=== PATIENT | female | born 1925 | race Caucasian/White ===

== ENCOUNTER 2016-08-22 11:44 | Inpatient (IN) | payer MEDICARE, OTHER ==
--- NOTE | 2016-08-22 12:02 | ER Document Report ---
Addendum entered and electronically signed by XUAN PENN NP 08/22/16 21:38 : Course - Re-evaluation Re-evalutation: 08/22/16 19:00 splint application by PCT, thumb spica and ulnar gutter, alignment and n/v/ intact normal after splint application. - Vital Signs Vital signs: Temp Pulse Resp BP Pulse Ox 97.4 F 93 17 115/56 L 97 08/22/16 12:06 08/22/16 12:06 08/22/16 21:00 08/22/16 21:00 08/22/16 21:00 - Laboratory Result Diagrams: 08/22/16 12:50 08/22/16 12:50 Laboratory results interpreted by me: 08/22/16 08/22/16 08/22/16 12:50 12:50 12:50 RBC 2.62 L Hgb 8.7 L Hct 25.5 L RDW 15.2 H Seg Neutrophils % 80.4 H Lymphocytes % 12.2 L Sodium 135.3 L Glucose 125 H Creatine Kinase CK-MB (CK-2) 9.97 H 08/22/16 12:50 RBC Hgb Hct RDW Seg Neutrophils % Lymphocytes % Sodium Glucose Creatine Kinase 505 H CK-MB (CK-2) Original Note: ED Fall - General Stated Complaint: FALL/NOSE PAIN,RIGHT WRIST SWELLING Time seen by provider: 12:02 Mode of Arrival: Medic Information source: Patient, Relative - daughter Notes: 89-year-old female that lives alone felt weak and dizzy last night which she has been experiencing for quite a while. Her legs give out on her which her primary care nurse practitioner has been working on. Because of the leg weakness , it caused her to fall while she was alone last night. the bookcase fell on her injuring her face. She is complaining of right wrist pain left shoulder pain low back pain and facial lacerations. She states she had to sleep on the books. No dizziness at this time. Her vital signs are stable. She has a history of anemia, cancer. She does not take anticoagulants. - Related data Allergies/Adverse Reactions: No Known Allergies Allergy (Unverified 08/22/16 12:21) Past Medical History - General Information source: Patient, Relative - Social History Smoking Status: Never Smoker Frequency of alcohol use: None Drug Abuse: None Lives with: Alone Family History: Reviewed & Not Pertinent Malignancy Medical History: Reports: Hx Ovarian Cancer, Other - 1 cancer spot still on liver and spleen Past Surgical History: Reports: Hx Hysterectomy, Other - partial colectomy due to ovarian cancer mets Review of Systems - Review of Systems Constitutional: No symptoms reported EENT: No symptoms reported Cardiovascular: No symptoms reported Respiratory: No symptoms reported Gastrointestinal: No symptoms reported Genitourinary: No symptoms reported Female Genitourinary: No symptoms reported Musculoskeletal: See HPI Skin: No symptoms reported Hematologic/Lymphatic: Anemia - chronic. denies: Easy bleeding Neurological/Psychological: See HPI Physical Exam - Vital signs Vitals: Temp Pulse Resp BP Pulse Ox 97.4 F 93 14 109/67 97 08/22/16 12:06 08/22/16 12:06 08/22/16 12:06 08/22/16 12:06 08/22/16 12:06 Interpretation: Normal - General General appearance: Appears well, Alert, Other - bright eyes - HEENT Head: Normocephalic, Ecchymosis, Open wounds - left forearm, nasal, left cheek- not sure of extent due to the dried blood, will investigate further, [place]'s eyes. No: Sommer's sign Eyes: Normal Conjunctiva: Normal Extraocular movements intact: Yes Pupils: PERRL Nerve palsy: No Tympanic membrane: Normal Nasal: Bloody discharge, Swelling. No: Septal hematoma Neck: Supple - mild mid c spine - Respiratory Respiratory status: No respiratory distress Chest status: Nontender Breath sounds: Normal Chest palpation: Normal - Cardiovascular Rhythm: Regular Heart sounds: Normal auscultation Murmur: No - Abdominal Inspection: Normal Distension: No distension Bowel sounds: Normal Tenderness: Nontender. No: Tender Organomegaly: No organomegaly - Back Back: Normal, Tender - mild lumbar spine - Extremities General upper extremity: Normal inspection, Nontender, Normal color, Normal ROM , Normal temperature General lower extremity: Normal inspection, Nontender, Normal color, Normal ROM , Normal temperature, Normal weight bearing. No: Kirsty's sign Elbow: Normal Forearm: Tender - wrist Hand: Abrasion - bruising, multiple dorsal right had, Ecchymosis - Neurological Neuro grossly intact: Yes Cognition: Normal Orientation: AAOx4 [place] Coma Scale Eye Opening: Spontaneous [place] Coma Scale Verbal: Oriented [place] Coma Scale Motor: Obeys Commands [place] Coma Scale Total: 15 Speech: Normal Motor strength normal: LUE, RUE, LLE, RLE Sensory: Normal - Psychological Associated symptoms: Normal affect, Normal mood - Skin Skin Temperature: Warm Skin Moisture: Dry Skin Color: Normal Course - Re-evaluation Re-evalutation: 08/22/16 14:[address] Blanca who said to add CPK CPK-MB troponin, ekg, cxr. He also recommended do transfuse one unit of blood. Try to get the patient admitted due to these episodes of dizziness and weakness. distal 1/3 fx right ulna. N/V intact. Distal first right metacarpal is also fractured 08/22/16 17:12 dr linares states that no criteria for admission unless she is orthostatic. supine BP 136/61 87, standing BP 109/95 112. 2 nurses had to hold her up, she is unstable and leans to the left, he will now admit. 08/22/16 17:[address] Lovelace the orthopedics who will consult on the patient. 08/22/16 17:23 sutured face completed. heating chicken dinner for her to eat - Vital Signs Vital signs: Temp Pulse Resp BP Pulse Ox 97.4 F 93 14 109/67 97 08/22/16 12:06 08/22/16 12:06 08/22/16 12:06 08/22/16 12:06 08/22/16 12:06 - Laboratory Result Diagrams: 08/22/16 12:50 08/22/16 12:50 Laboratory results interpreted by me: 08/22/16 08/22/16 08/22/16 12:50 12:50 12:50 RBC 2.62 L Hgb 8.7 L Hct 25.5 L RDW 15.2 H Seg Neutrophils % 80.4 H Lymphocytes % 12.2 L Sodium 135.3 L Glucose 125 H Creatine Kinase CK-MB (CK-2) 9.97 H 08/22/16 12:50 RBC Hgb Hct RDW Seg Neutrophils % Lymphocytes % Sodium Glucose Creatine Kinase 505 H CK-MB (CK-2) Procedures - Laceration/Wound Repair Left Face Time completed: 18:20 Wound length (cm): 2 Wound's Depth, Shape: Linear Laceration pre-procedure: Sterile drapes applied, Other - surgiscrub Anesthetic type: 1% Lidocaine Volume Anesthetic (mLs): 6 Wound explored: Clean Irrigated w/ Saline (mLs): 60 Wound Repaired With: Sutures Suture Size/Type: 5:0, Nylon Number of Sutures: 6 - 1 vertical mattress, 5 simple Post-procedure NV exam normal: Yes Complications: No Notes: 08/22/16 18:42 bridge of nose with 0.5 cm superficial cut Discharge - Discharge Clinical Impression: Pre-syncope, fractured right ulna, Anemia of chronic disease, low back pain, right 1st MC fx, RHABDOMYOLYSIS, facial laceration repair Fall Qualifiers: Encounter type: initial encounter Qualified Code(s): W19.XXXA - Unspecified fall, initial encounter Facial laceration Qualifiers: Encounter type: initial encounter Qualified Code(s): S01.81XA - Laceration without foreign body of other part of head, initial encounter Left shoulder pain Qualifiers: Chronicity: chronic Qualified Code(s): M25.512 - Pain in left shoulder Condition: Fair Disposition: ADMITTED INPATIENT Admitting Provider: Hospitalist Unit Admitted: Medical Floor
[2016-08-22] MEDS ORDERED: NORMAL SALINE 1000 ML 500 ML IV ONE (12:14)
[2016-08-22] MEDS ORDERED: NORMAL SALINE 1000 ML 1,000 ML IV ONE (12:15)
[2016-08-22] MEDS ORDERED: ONDANSETRON HCL INJ/PF 4 MG/2 ML SDV IV ONE (12:16)
[2016-08-22] MEDS ORDERED: MORPHINE SULFATE 10 MG/ML INJ IV ONE ×3 (12:16→17:15)
[2016-08-22] MEDS ORDERED: DIPH/PERTUSS(ACELL)/TETANUS VAC/PF 0.5 ML SYR (>=10YO) IM ONE (12:21)
[2016-08-22] MEDS ORDERED: LIDOCAINE 1% INJ-PF (10 MG/ML) 30 ML SDV INJ ONE (12:23)
[2016-08-22 13:10] LABS: ABSOLUTE LYMPHOCYTES (AUTO) 1.1 10^3/uL (0.5-4.7); ABSOLUTE MONOCYTES (AUTO) 0.6 10^3/uL (0.1-1.4); ABSOLUTE NEUT (AUTO) 7.2 10^3/uL (1.7-8.2); BASOPHILS % (AUTO) 0.2 % (0-2); HEMATOCRIT 25.5 % (36.0-47.0); HEMOGLOBIN 8.7 g/dL (12.0-15.5); HGB HCT DIFFERENCE 0.6; LYMPHOCYTES % (AUTO) 12.2 % (13-45); MEAN CORPUSCULAR HEMOGLOBIN 33.1 pg (27.0-33.4); MEAN CORPUSCULAR HGB CONC 34.1 g/dL (32.0-36.0); MEAN CORPUSCULAR VOLUME 97 fl (80-97); MONOCYTES % (AUTO) 7.2 % (3-13); PARTIAL THROMBOPLASTIN TIME 26.3 SEC (23.5-35.8); RED BLOOD COUNT 2.62 10^6/uL (3.72-5.28); RED CELL DISTRIBUTION WIDTH 15.2 % (11.5-14.0); SEGMENTED NEUTROPHILS % (AUTO) 80.4 % (42-78)
[2016-08-22 13:17] LABS: ALANINE AMINOTRANSFERASE 27 U/L (9-52); ALBUMIN 3.6 g/dL (3.5-5.0); ALKALINE PHOSPHATASE 84 U/L (38-126); ANION GAP 11 (5-19); ASPARTATE AMINO TRANSFERASE 36 U/L (14-36); BILIRUBIN,TOTAL 0.4 mg/dL (0.2-1.3); BLOOD UREA NITROGEN 20 mg/dL (7-20); CALCIUM 9.5 mg/dL (8.4-10.2); CARBON DIOXIDE 23 mmol/L (22-30); CHLORIDE 101 mmol/L (98-107); CREATININE RESULT 0.83 mg/dL (0.52-1.25); GLUCOSE 125 mg/dL (75-110); POTASSIUM 4.6 mmol/L (3.6-5.0); SODIUM 135.3 mmol/L (137-145); TOTAL PROTEIN 6.6 g/dL (6.3-8.2)
[2016-08-22] MEDS ORDERED: NORMAL SALINE 250 ML IV PRN ×2 (14:32)
[2016-08-22 15:05] LABS: CREATINE KINASE MB 9.97 ng/mL (<4.55)
[2016-08-22 15:06] LABS: TROPONIN I < 0.012 ng/mL
--- NOTE | 2016-08-22 15:55 | EKG REPORT ---
SEVERITY:- BORDERLINE ECG - SINUS RHYTHM PROBABLE LEFT ATRIAL ABNORMALITY BORDERLINE PROLONGED QT INTERVAL : Confirmed by: Lilli Guerra 22-Aug-2016 15:54:38
[2016-08-22] MEDS ORDERED: ONDANSETRON HCL INJ/PF 4 MG/2 ML SDV IV PRN (17:47)
[2016-08-22] MEDS ORDERED: IPRATROPIUM/ALBUTEROL 0.5-2.5 MG/3 ML AMPUL NEB PRN (17:47)
--- NOTE | 2016-08-22 18:21 | PDOC H&P ---
History of Present Illness Admission Date/PCP: elise BARRERA Patient complains of: Bookcase fell on her History of Present Illness: SHEREEN CHOUDHURY is a 89 year old female who has lived alone and has been in fairly good health of having ovarian cancer. She finished chemotherapy last in May. Yesterday evening around 11 PM she was walking to her house and felt lightheaded and dizzy. She reached behind her and grabbed hold of the bookshelf to stop her fall and pulled the bookshelf on top of her. She suffered facial lacerations as well as a right forearm fracture and left thumb fracture. She laid on the floor until 9 AM when her daughter came by to fix her breakfast. She was found underneath the bookcase covered and blood and was brought to the emergency room for further treatment. The patient denies having any loss of consciousness. She denied having any palpitations or tachycardia. The patient currently however has difficulty standing because feeling lightheaded and appears to be dehydrated. The patient also has fractures of her right ulnar as above. Past Medical History Cardiac Medical History: Reports: None Pulmonary Medical History: Reports: None EENT Medical History: Reports: Cataracts Neurological Medical History: Reports: None Endocrine Medical History: Reports: Hypothyroidism Malignancy Medical History: Reports: Ovarian Cancer, Other - 1 cancer spot still on liver and spleen GI Medical History: Reports: Other - Partial colectomy for debulking surgery from the ovarian cancer. Musculoskeltal Medical History: Reports: Arthritis Skin Medical History: Reports: None Psychiatric Medical History: Reports: Depression Traumatic Medical History: Reports: None Hematology: Reports: Anemia Infectious Medical History: Reports: None Past Surgical History Past Surgical History: Reports: Hysterectomy, Other - partial colectomy due to ovarian cancer mets Social History Information Source: Patient Lives with: Alone Smoking Status: Never Smoker Frequency of Alcohol Use: None Hx Recreational Drug Use: No Drugs: None - Advance Directive Resuscitation Status: Full Code Family History Family History: Mother at age 74. She had scarlet fever, coronary artery disease, CVA. Father at age 86 and had no chronic health problems. Parental Family History Reviewed: Yes Children Family History Reviewed: No Sibling(s) Family History Reviewed.: No Medication/Allergy Allergies/Adverse Reactions: No Known Allergies Allergy (Unverified 08/22/16 12:21) Review of Systems Constitutional: ABSENT: chills, fever(s), headache(s), weight gain, weight loss Eyes: ABSENT: visual disturbances Ears: ABSENT: hearing changes Cardiovascular: ABSENT: chest pain, dyspnea on exertion, edema, orthropnea, palpitations Respiratory: ABSENT: cough, hemoptysis Gastrointestinal: ABSENT: abdominal pain, constipation, diarrhea, hematemesis, hematochezia, nausea, vomiting Genitourinary: ABSENT: dysuria, hematuria Musculoskeletal: PRESENT: back pain, joint swelling, muscle weakness Integumentary: PRESENT: other - Has multiple lacerations on her face from her fall yesterday evening. Neurological: PRESENT: dizziness, lack of coordination Psychiatric: ABSENT: anxiety, depression Endocrine: ABSENT: cold intolerance, heat intolerance, polydipsia, polyuria Physical Exam Vital Signs: Temp Pulse Resp BP Pulse Ox 97.4 F 93 14 109/67 97 08/22/16 12:06 08/22/16 12:06 08/22/16 12:06 08/22/16 12:06 08/22/16 12:06 General appearance: PRESENT: no acute distress Head exam: PRESENT: other - Patient has a large laceration above her left eyebrow. At The time of my exam she had dried blood on her face that was the process of being cleaned by ER staff. Eye exam: PRESENT: conjunctiva pink, EOMI, PERRLA. ABSENT: scleral icterus Ear exam: PRESENT: normal external ear exam Mouth exam: PRESENT: dry mucosa Neck exam: ABSENT: carotid bruit, JVD, lymphadenopathy, thyromegaly Respiratory exam: PRESENT: clear to auscultation lance. ABSENT: rales, rhonchi, wheezes Cardiovascular exam: PRESENT: RRR. ABSENT: diastolic murmur, rubs, systolic murmur Pulses: PRESENT: normal carotid pulses Vascular exam: PRESENT: normal capillary refill GI/Abdominal exam: PRESENT: normal bowel sounds, soft. ABSENT: distended, guarding, mass, organolmegaly, rebound, tenderness Rectal exam: PRESENT: deferred Extremities exam: PRESENT: joint swelling - Right knee is swollen with 1+ effusion.. ABSENT: calf tenderness, clubbing, pedal edema Neurological exam: PRESENT: alert, awake, oriented to person, oriented to place , oriented to time, oriented to situation, CN II-XII grossly intact. ABSENT: motor sensory deficit Psychiatric exam: PRESENT: appropriate affect Skin exam: PRESENT: other - Patient has multiple abrasions on her right arm and face. Results Laboratory Results: 08/22/16 12:50 08/22/16 12:50 08/22/16 08/22/16 12:50 12:50 WBC 9.0 RBC 2.62 L Hgb 8.7 L Hct 25.5 L MCV 97 MCH 33.1 MCHC 34.1 RDW 15.2 H Plt Count 241 Seg Neutrophils % 80.4 H Lymphocytes % 12.2 L Monocytes % 7.2 Eosinophils % 0.0 Basophils % 0.2 Absolute Neutrophils 7.2 Absolute Lymphocytes 1.1 Absolute Monocytes 0.6 Absolute Eosinophils 0.0 Absolute Basophils 0.0 Sodium 135.3 L Potassium 4.6 Chloride 101 Carbon Dioxide 23 Anion Gap 11 BUN 20 Creatinine 0.83 Est GFR ( Amer) > 60 Est GFR (Non-Af Amer) > 60 Glucose 125 H Calcium 9.5 Total Bilirubin 0.4 AST 36 ALT 27 Alkaline Phosphatase 84 Total Protein 6.6 Albumin 3.6 08/22/16 08/22/16 12:50 12:50 Creatine Kinase 505 H CK-MB (CK-2) 9.97 H Troponin I < 0.012 Impressions: Forearm X-Ray 08/22/16 00:00 IMPRESSION: Acute spiral fracture mid 3rd right ulnar diaphysis Acute fracture right 1st metacarpal along the distal diaphysis Cervical Spine CT 08/22/16 12:15 IMPRESSION: CHRONIC DEGENERATIVE CHANGES. NO ACUTE FINDINGS. Facial Bones CT 08/22/16 12:15 IMPRESSION: No evidence for fracture. Paranasal sinuses are well-aerated without air-fluid levels. Soft tissue findings as noted above Hand X-Ray 08/22/16 12:15 IMPRESSION: Acute fracture distal aspect right 1st metacarpal diaphysis, nondisplaced. This best shown on the oblique view, marked with a [place] Head CT 08/22/16 12:15 IMPRESSION: MILD CHRONIC CHANGES OF ATROPHY AND MICROVASCULAR ISCHEMIA. No other significant intracranial abnormalities were identified. Scalp hematoma is identified in the left frontal region Lumbar Spine X-Ray 08/22/16 12:15 IMPRESSION: Degenerative changes. Osteopenia. 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 Assessment & Plan - Diagnosis (1) Fall Qualifiers: Encounter type: initial encounter Qualified Code(s): W19.XXXA - Unspecified fall, initial encounter Is this a current diagnosis for this admission?: YesPlan: The patient was dizzy and grabbed a bookcase that develop on her and caused injury including fracture of her right arm. The patient had no loss of consciousness and no palpitations or tachycardia. This appeared to be a simple mechanical fall and no other precipitating factor. Unfortunately the patient has suffered severe lacerations of her face as well as rhabdomyolysis and arm fracture. (2) Facial laceration Qualifiers: Encounter type: initial encounter Qualified Code(s): S01.81XA - Laceration without foreign body of other part of head, initial encounter Is this a current diagnosis for this admission?: YesPlan: The facial lacerations are being sutured by the emergency room staff. (3) Rhabdomyolysis Is this a current diagnosis for this admission?: YesPlan: The patient was down on the ground for approximately 10 hours. She has developed some mild to moderate rhabdomyolysis. She was orthostatic in the emergency room. We will give fluids overnight and watch closely. She has no evidence for renal failure at this time. The patient is anemic but reports that she is chronically anemic. (4) Ovarian cancer Is this a current diagnosis for this admission?: YesPlan: The patient has had chemotherapy including carboplatin in the past. Her last chemotherapy was in May and by reports she has a lesion on her liver. (5) Hypothyroidism Is this a current diagnosis for this admission?: YesPlan: The patient normally takes Synthroid. She is uncertain as to what the doses but her family will find out and let us know. (6) Depression Is this a current diagnosis for this admission?: YesPlan: The patient was started on Lexapro when her developed dementia. She is uncertain of the dose but the family will find out what her dose is. (7) Anemia of chronic disease Is this a current diagnosis for this admission?: YesPlan: The patient is orthostatic but it's unclear if the anemia is playing a role. We will give fluids overnight and recheck her hemoglobin in the morning. If it drops below 8 we will transfuse. (8) Ulna fracture Is this a current diagnosis for this admission?: YesPlan: The patient will be given analgesics as needed and orthopedic surgery has been consulted. The patient normally uses a walker and her right arm is going to be in a sling. 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 - Time Time Spent: 50 to 70 Minutes Anticipated discharge: SNF - Inpatient Certification Medical Necessity: Need Close Monitoring Due to Risk of Patient Decompensation, Need For IV Fluids
[2016-08-22 22:25] LABS: APPEARANCE,URINE CLOUDY; BILIRUBIN,URINE NEGATIVE (NEGATIVE); GLUCOSE, URINE NEGATIVE (NEGATIVE); KETONES,URINE NEGATIVE (NEGATIVE); LEUKOCYTE ESTERASE,URINE SMALL (NEGATIVE); NITRITE,URINE NEGATIVE (NEGATIVE); PROTEIN,URINE NEGATIVE (NEGATIVE); URINE SPECIFIC GRAVITY 1.018; UROBILINOGEN,URINE NEGATIVE mg/dL (<2.0)
[2016-08-23] MEDS ORDERED: INFLUENZA ADLT QUAD (36MOS+) 2016-17 VAC 0.5 ML SYR IM PRN (00:36)
[2016-08-23] MEDS: FAMOTIDINE 20 MG TABLET PO SCH ×3 (02:57→22:00)
[2016-08-23 05:40] LABS: HEMATOCRIT 21.6 % (36.0-47.0); HGB HCT DIFFERENCE 0.3; MEAN CORPUSCULAR HGB CONC 33.6 g/dL (32.0-36.0); MEAN CORPUSCULAR VOLUME 98 fl (80-97); RED CELL DISTRIBUTION WIDTH 15.6 % (11.5-14.0); WHITE BLOOD COUNT 8.4 10^3/uL (4.0-10.5)
[2016-08-23 05:49] LABS: HEMOGLOBIN 7.3 g/dL (12.0-15.5)
[2016-08-23 05:50] LABS: ANION GAP 8 (5-19); BLOOD UREA NITROGEN 15 mg/dL (7-20); CALCIUM 8.9 mg/dL (8.4-10.2); CARBON DIOXIDE 24 mmol/L (22-30); CHLORIDE 103 mmol/L (98-107); CREATINE KINASE 765 U/L (30-135); CREATININE RESULT 0.79 mg/dL (0.52-1.25); GLUCOSE 103 mg/dL (75-110); POTASSIUM 4.1 mmol/L (3.6-5.0); SODIUM 134.6 mmol/L (137-145)
[2016-08-23] MEDS: OXYCODONE-ACETAMINOPHEN 5-325 MG TABLET PO PRN (06:32)
[2016-08-23] MEDS ORDERED: NORMAL SALINE 250 ML IV PRN ×2 (07:26)
[2016-08-23] MEDS ORDERED: FUROSEMIDE INJ/PF 20 MG/2 ML SDV IV PRN (07:26)
--- NOTE | 2016-08-23 10:07 | PDOC CONSULTATION ---
History of Present Illness Admission Date/PCP: 08/22/16 17:47 MARCELLO ADAIR Patient complains of: Right arm and hand pain History of Present Illness: 89-year-old female who fell and had a drawer stress fall onto her right arm and face. Patient had lacerations to the face and pain and swelling of the right forearm and hand. Denies any numbness or tingling or paresthesias. Denies any previous surgeries or injuries to the right upper extremity. Patient is right- hand dominant. Patient admitted for medical issues. ER x-rayed her forearm and hand and diagnosed her with an ulnar shaft fracture and knee first metatarsal carpal head fracture. She was placed in a thumb spica splint. Past Medical History Cardiac Medical History: Reports: None Pulmonary Medical History: Reports: None EENT Medical History: Reports: Cataracts Neurological Medical History: Reports: None Endocrine Medical History: Reports: Hypothyroidism Malignancy Medical History: Reports: Ovarian Cancer, Other - 1 cancer spot still on liver and spleen GI Medical History: Reports: Other - Partial colectomy for debulking surgery from the ovarian cancer. Musculoskeltal Medical History: Reports: Arthritis Skin Medical History: Reports: None Psychiatric Medical History: Reports: Depression Traumatic Medical History: Reports: None Hematology: Reports: Anemia Infectious Medical History: Reports: None Past Surgical History Past Surgical History: Reports: Hysterectomy, Other - partial colectomy due to ovarian cancer mets Social History Lives with: Alone Smoking Status: Unknown if Ever Smoked Frequency of Alcohol Use: None Hx Recreational Drug Use: No Drugs: None Hx Prescription Drug Abuse: No - Advance Directive Resuscitation Status: Do Not Resuscitate Family History Family History: Reviewed & Not Pertinent Parental Family History Reviewed: Yes Children Family History Reviewed: Yes Sibling(s) Family History Reviewed.: Yes Medication/Allergy Home Medications: Escitalopram Oxalate [Lexapro 10 mg Tablet] 1 tab PO DAILY 08/22/16 Levothyroxine Sodium [Synthroid 0.05 mg Tablet] 1 tab PO DAILY 08/22/16 Tramadol HCl 1 tab PO Q4HP PRN 08/22/16 Allergies/Adverse Reactions: No Known Allergies Allergy (Unverified 08/22/16 12:21) Physical Exam Vital Signs: Temp Pulse Resp BP Pulse Ox 36.7 C 87 16 107/39 L 95 08/23/16 07:55 08/23/16 07:55 08/23/16 07:55 08/23/16 07:55 08/23/16 07:55 Intake & Output 08/22/16 08/23/16 08/24/16 06:59 06:59 06:59 Weight 65.3 kg General appearance: PRESENT: no acute distress Head exam: PRESENT: normocephalic - Lacerations to upper eyelid. Sutures in place done in the ER. Eye exam: PRESENT: EOMI. ABSENT: nystagmus Respiratory exam: PRESENT: symmetrical, unlabored. ABSENT: accessory muscle use Additional comments: +2 radial pulse. Brisk capillary refill. Musculoskeletal exam: PRESENT: ambulatory. ABSENT: deformity Neurological exam: PRESENT: alert, awake, oriented to person, oriented to place , oriented to time Psychiatric exam: PRESENT: appropriate affect, normal mood Skin exam: PRESENT: intact Adult Front & Back Image: 1 - Right forearm tender to palpation in mid forearm on the ulnar aspect. Patient also has tenderness at the base of the thumb. Swelling present. Decreased range of motion second to pain. Has good capillary refills of the digits. Good radial pulse. No obvious deformity. Patient was placed back in the thumb spica splint. Results Laboratory Results: 08/23/16 05:14 08/23/16 05:14 08/22/16 08/23/16 08/23/16 22:01 05:14 05:14 WBC 8.4 RBC 2.20 L Hgb 7.3 L Hct 21.6 L MCV 98 H MCH 33.0 MCHC 33.6 RDW 15.6 H Plt Count 212 Sodium 134.6 L Potassium 4.1 Chloride 103 Carbon Dioxide 24 Anion Gap 8 BUN 15 Creatinine 0.79 Est GFR ( Amer) > 60 Est GFR (Non-Af Amer) > 60 Glucose 103 Calcium 8.9 Urine Color YELLOW Urine Appearance CLOUDY Urine pH 5.0 Ur Specific [place] 1.018 Urine Protein NEGATIVE Urine Glucose (UA) NEGATIVE Urine Ketones NEGATIVE Urine Blood NEGATIVE Urine Nitrite NEGATIVE Ur Leukocyte Esterase SMALL H Urine WBC (Auto) 39 Urine RBC (Auto) 1 08/23/16 05:14 Creatine Kinase 765 H Impressions: Forearm X-Ray 08/22/16 00:00 IMPRESSION: Acute spiral fracture mid 3rd right ulnar diaphysis Acute fracture right 1st metacarpal along the distal diaphysis Cervical Spine CT 08/22/16 12:15 IMPRESSION: CHRONIC DEGENERATIVE CHANGES. NO ACUTE FINDINGS. Facial Bones CT 08/22/16 12:15 IMPRESSION: No evidence for fracture. Paranasal sinuses are well-aerated without air-fluid levels. Soft tissue findings as noted above Hand X-Ray 08/22/16 12:15 IMPRESSION: Acute fracture distal aspect right 1st metacarpal diaphysis, nondisplaced. This best shown on the oblique view, marked with a [place] Head CT 08/22/16 12:15 IMPRESSION: MILD CHRONIC CHANGES OF ATROPHY AND MICROVASCULAR ISCHEMIA. No other significant intracranial abnormalities were identified. Scalp hematoma is identified in the left frontal region Lumbar Spine X-Ray 08/22/16 12:15 IMPRESSION: Degenerative changes. Osteopenia. 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 Assessment & Plan - Diagnosis (1) Fracture of ulnar shaft, closed Qualifiers: Encounter type: initial encounter Fracture morphology: oblique Fracture alignment: displaced Laterality: right Qualified Code(s): S52.231A - Displaced oblique fracture of shaft of right ulna, initial encounter for closed fracture Is this a current diagnosis for this admission?: Yes (2) Fracture of metacarpal neck of right hand, closed Is this a current diagnosis for this admission?: Yes - Plan Summary Plan Summary: 89-year-old female with right ulnar shaft fracture with mild displacement and very little shortening. Pertaining to the right first metacarpal neck fracture it's about 20 of angulation with little displacement. Patient will be kept in a thumb spica splint until her discharge. Instructed to follow up with us in the office in 2 weeks. Instructed to be nonweightbearing. Instructed to keep the splint dry clean and intact. Elevate and place a big bag of ice on top a splint over a towel is okay for pain relief.
--- NOTE | 2016-08-23 10:52 | PDOC PROGRESS REPORT ---
Subjective Progress Note for:: 08/23/16 Subjective:: Reports the pain in her arms tolerable after a Percocet. Physical Exam Vital Signs: Temp Pulse Resp BP Pulse Ox 98.0 F 87 16 107/39 L 95 08/23/16 07:55 08/23/16 07:55 08/23/16 07:55 08/23/16 07:55 08/23/16 07:55 Intake & Output 08/22/16 08/23/16 08/24/16 06:59 06:59 06:59 Weight 65.3 kg General appearance: PRESENT: no acute distress Head exam: PRESENT: other - Sutures present on the left forehead Eye exam: PRESENT: conjunctiva pink Mouth exam: PRESENT: moist, tongue midline Neck exam: ABSENT: JVD Respiratory exam: PRESENT: clear to auscultation lance. ABSENT: rales, rhonchi, wheezes Cardiovascular exam: PRESENT: RRR. ABSENT: diastolic murmur, rubs, systolic murmur GI/Abdominal exam: PRESENT: normal bowel sounds, soft. ABSENT: distended, guarding, mass, organolmegaly, rebound, tenderness Extremities exam: PRESENT: other - Splint in place on right arm Neurological exam: PRESENT: alert, awake, oriented to person, oriented to place , oriented to time, oriented to situation Psychiatric exam: PRESENT: appropriate affect Skin exam: PRESENT: abrasion - On forehead and right arm Results Laboratory Results: 08/23/16 05:14 08/23/16 05:14 08/22/16 08/23/16 08/23/16 22:01 05:14 05:14 WBC 8.4 RBC 2.20 L Hgb 7.3 L Hct 21.6 L MCV 98 H MCH 33.0 MCHC 33.6 RDW 15.6 H Plt Count 212 Sodium 134.6 L Potassium 4.1 Chloride 103 Carbon Dioxide 24 Anion Gap 8 BUN 15 Creatinine 0.79 Est GFR ( Amer) > 60 Est GFR (Non-Af Amer) > 60 Glucose 103 Calcium 8.9 Urine Color YELLOW Urine Appearance CLOUDY Urine pH 5.0 Ur Specific [place] 1.018 Urine Protein NEGATIVE Urine Glucose (UA) NEGATIVE Urine Ketones NEGATIVE Urine Blood NEGATIVE Urine Nitrite NEGATIVE Ur Leukocyte Esterase SMALL H Urine WBC (Auto) 39 Urine RBC (Auto) 1 Blood Type Antibody Screen 08/23/16 08:27 WBC RBC Hgb Hct MCV MCH MCHC RDW Plt Count Sodium Potassium Chloride Carbon Dioxide Anion Gap BUN Creatinine Est GFR ( Amer) Est GFR (Non-Af Amer) Glucose Calcium Urine Color Urine Appearance Urine pH Ur Specific [place] Urine Protein Urine Glucose (UA) Urine Ketones Urine Blood Urine Nitrite Ur Leukocyte Esterase Urine WBC (Auto) Urine RBC (Auto) Blood Type O POSITIVE Antibody Screen NEGATIVE 08/23/16 05:14 Creatine Kinase 765 H Impressions: Forearm X-Ray 08/22/16 00:00 IMPRESSION: Acute spiral fracture mid 3rd right ulnar diaphysis Acute fracture right 1st metacarpal along the distal diaphysis Cervical Spine CT 08/22/16 12:15 IMPRESSION: CHRONIC DEGENERATIVE CHANGES. NO ACUTE FINDINGS. Facial Bones CT 08/22/16 12:15 IMPRESSION: No evidence for fracture. Paranasal sinuses are well-aerated without air-fluid levels. Soft tissue findings as noted above Hand X-Ray 08/22/16 12:15 IMPRESSION: Acute fracture distal aspect right 1st metacarpal diaphysis, nondisplaced. This best shown on the oblique view, marked with a wiyot Head CT 08/22/16 12:15 IMPRESSION: MILD CHRONIC CHANGES OF ATROPHY AND MICROVASCULAR ISCHEMIA. No other significant intracranial abnormalities were identified. Scalp hematoma is identified in the left frontal region Lumbar Spine X-Ray 08/22/16 12:15 IMPRESSION: Degenerative changes. Osteopenia. 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 Assessment & Plan - Diagnosis (1) Fall Qualifiers: Encounter type: initial encounter Qualified Code(s): W19.XXXA - Unspecified fall, initial encounter Is this a current diagnosis for this admission?: YesPlan: The patient was dizzy and grabbed a bookcase that develop on her and caused injury including fracture of her right arm. The patient had no loss of consciousness and no palpitations or tachycardia. This appeared to be a simple mechanical fall and no other precipitating factor. Unfortunately the patient has suffered severe lacerations of her face as well as rhabdomyolysis and arm fracture. (2) Facial laceration Qualifiers: Encounter type: initial encounter Qualified Code(s): S01.81XA - Laceration without foreign body of other part of head, initial encounter Is this a current diagnosis for this admission?: YesPlan: The facial lacerations have been sutured by the emergency room staff. (3) Rhabdomyolysis Is this a current diagnosis for this admission?: YesPlan: The patient was down on the ground for approximately 10 hours. She has developed some mild to moderate rhabdomyolysis. She was orthostatic in the emergency room. We will give fluids overnight and watch closely. The patient' s CK has actually worsened since yesterday. We'll continue with IV fluids. She has no evidence for renal failure at this time. The patient is anemic but reports that she is chronically anemic. (4) Ovarian cancer Is this a current diagnosis for this admission?: YesPlan: The patient has had chemotherapy including carboplatin in the past. Her last chemotherapy was in May and by reports she has a lesion on her liver. (5) Hypothyroidism Is this a current diagnosis for this admission?: YesPlan: The patient normally takes Synthroid. She is uncertain as to what the doses but her family will find out and let us know. (6) Depression Is this a current diagnosis for this admission?: YesPlan: The patient was started on Lexapro when her developed dementia. She is uncertain of the dose but the family will find out what her dose is. (7) Anemia of chronic disease Is this a current diagnosis for this admission?: YesPlan: Her hemoglobin has decreased after getting IV fluids. We'll transfuse 2 units of packed red blood cells. (8) Ulna fracture Is this a current diagnosis for this admission?: YesPlan: Orthopedic surgery has evaluated the patient and their input is greatly appreciated. The patient normally uses a walker and her right arm is going to be in a sling. 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 - Time Time Spent with patient: 25-34 minutes - Inpatient Certification Medical Necessity: Need Close Monitoring Due to Risk of Patient Decompensation - Plan Summary Plan Summary: [facility] will need [facility] as she'll be unable to care for herself given her inability to use her walker now she cannot bear weight on the right arm.
[2016-08-23] MEDS: ACETAMINOPHEN 325 MG TABLET PO PRN (18:15)
[2016-08-23] MEDS: DOCUSATE SODIUM 100 MG CAPSULE PO SCH (22:00)
[2016-08-23] MEDS: NORMAL SALINE 1000 ML 1,000 ML IV PRN (22:06)
[2016-08-24 00:30] LABS: ABSOLUTE LYMPHOCYTES (AUTO) 1.4 10^3/uL (0.5-4.7); ABSOLUTE MONOCYTES (AUTO) 0.9 10^3/uL (0.1-1.4); ABSOLUTE NEUT (AUTO) 6.6 10^3/uL (1.7-8.2); BASOPHILS % (AUTO) 0.2 % (0-2); EOSINOPHILS % (AUTO) 0.1 % (0-6); HEMATOCRIT 28.7 % (36.0-47.0); HGB HCT DIFFERENCE 0.4; LYMPHOCYTES % (AUTO) 15.2 % (13-45); MEAN CORPUSCULAR HEMOGLOBIN 31.3 pg (27.0-33.4); MONOCYTES % (AUTO) 10.4 % (3-13); RED BLOOD COUNT 3.11 10^6/uL (3.72-5.28); RED CELL DISTRIBUTION WIDTH 17.5 % (11.5-14.0); SEGMENTED NEUTROPHILS % (AUTO) 74.1 % (42-78); WHITE BLOOD COUNT 8.9 10^3/uL (4.0-10.5)
[2016-08-24 00:31] LABS: HEMOGLOBIN 9.7 g/dL (12.0-15.5); MEAN CORPUSCULAR VOLUME 92 fl (80-97)
[2016-08-24] MEDS: ACETAMINOPHEN 325 MG TABLET PO PRN ×2 (05:57→13:25)
[2016-08-24 06:41] LABS: ABSOLUTE LYMPHOCYTES (AUTO) 1.4 10^3/uL (0.5-4.7); ABSOLUTE MONOCYTES (AUTO) 0.7 10^3/uL (0.1-1.4); ABSOLUTE NEUT (AUTO) 5.2 10^3/uL (1.7-8.2); BASOPHILS % (AUTO) 0.3 % (0-2); EOSINOPHILS % (AUTO) 0.4 % (0-6); HEMATOCRIT 28.4 % (36.0-47.0); HEMOGLOBIN 9.7 g/dL (12.0-15.5); HGB HCT DIFFERENCE 0.7; LYMPHOCYTES % (AUTO) 19.1 % (13-45); MEAN CORPUSCULAR HEMOGLOBIN 31.2 pg (27.0-33.4); MEAN CORPUSCULAR VOLUME 92 fl (80-97); MONOCYTES % (AUTO) 10.2 % (3-13); RED CELL DISTRIBUTION WIDTH 17.2 % (11.5-14.0); WHITE BLOOD COUNT 7.4 10^3/uL (4.0-10.5)
[2016-08-24 07:01] LABS: ANION GAP 5 (5-19); BLOOD UREA NITROGEN 12 mg/dL (7-20); CALCIUM 8.4 mg/dL (8.4-10.2); CARBON DIOXIDE 27 mmol/L (22-30); CHLORIDE 105 mmol/L (98-107); CREATININE RESULT 0.75 mg/dL (0.52-1.25); GLUCOSE 85 mg/dL (75-110); POTASSIUM 3.7 mmol/L (3.6-5.0); SODIUM 136.8 mmol/L (137-145)
[2016-08-24] MEDS: DOCUSATE SODIUM 100 MG CAPSULE PO SCH ×2 (09:27→23:05)
[2016-08-24] MEDS: FAMOTIDINE 20 MG TABLET PO SCH ×2 (09:27→23:05)
--- NOTE | 2016-08-24 11:55 | PDOC PROGRESS REPORT ---
Subjective Progress Note for:: 08/24/16 Subjective:: Complains of pain in her right arm. She's had difficulty getting up out of bed. Physical Exam Vital Signs: Temp Pulse Resp BP Pulse Ox 98.5 F 81 19 141/56 H 94 08/24/16 08:00 08/24/16 08:00 08/24/16 08:00 08/24/16 08:00 08/24/16 08:00 Intake & Output 08/23/16 08/24/16 08/25/16 06:59 06:59 06:59 Intake Total 4711 Balance 4711 Weight 65.3 kg 70.2 kg General appearance: PRESENT: no acute distress Head exam: PRESENT: other - Periorbital ecchymoses Eye exam: PRESENT: conjunctiva pink, periorbital swelling Ear exam: PRESENT: normal external ear exam Mouth exam: PRESENT: moist, tongue midline Neck exam: ABSENT: JVD Respiratory exam: PRESENT: clear to auscultation lance. ABSENT: rales, rhonchi, wheezes Cardiovascular exam: PRESENT: RRR. ABSENT: diastolic murmur, rubs, systolic murmur GI/Abdominal exam: PRESENT: normal bowel sounds, soft. ABSENT: distended, guarding, mass, organolmegaly, rebound, tenderness Extremities exam: PRESENT: other - Right arm is in a splint.. ABSENT: calf tenderness, clubbing, pedal edema Neurological exam: PRESENT: alert, awake, oriented to person, oriented to place , oriented to time, oriented to situation Psychiatric exam: PRESENT: appropriate affect Skin exam: PRESENT: other - Multiple abrasions and ecchymosis on the right arm and face. Sutures above the left eyebrow. Results Laboratory Results: 08/24/16 05:50 08/24/16 05:50 08/23/16 08/23/16 08/24/16 08:27 23:56 05:50 WBC 8.9 7.4 RBC 3.11 L 3.10 L Hgb 9.7 L D 9.7 L Hct 28.7 L 28.4 L MCV 92 D 92 MCH 31.3 31.2 MCHC 34.0 34.0 RDW 17.5 H 17.2 H Plt Count 187 196 Seg Neutrophils % 74.1 70.0 Lymphocytes % 15.2 19.1 Monocytes % 10.4 10.2 Eosinophils % 0.1 0.4 Basophils % 0.2 0.3 Absolute Neutrophils 6.6 5.2 Absolute Lymphocytes 1.4 1.4 Absolute Monocytes 0.9 0.7 Absolute Eosinophils 0.0 0.0 Absolute Basophils 0.0 0.0 Sodium Potassium Chloride Carbon Dioxide Anion Gap BUN Creatinine Est GFR ( Amer) Est GFR (Non-Af Amer) Glucose Calcium Blood Type O POSITIVE Antibody Screen NEGATIVE 08/24/16 05:50 WBC RBC Hgb Hct MCV MCH MCHC RDW Plt Count Seg Neutrophils % Lymphocytes % Monocytes % Eosinophils % Basophils % Absolute Neutrophils Absolute Lymphocytes Absolute Monocytes Absolute Eosinophils Absolute Basophils Sodium 136.8 L Potassium 3.7 Chloride 105 Carbon Dioxide 27 Anion Gap 5 BUN 12 Creatinine 0.75 Est GFR ( Amer) > 60 Est GFR (Non-Af Amer) > 60 Glucose 85 Calcium 8.4 Blood Type Antibody Screen 08/22/16 22:01 Clean Catch Midstream Urine Culture - Final Enterococcus Faecalis(Group D) 08/23/16 08/24/16 05:14 05:50 Creatine Kinase 765 H 260 H Impressions: Forearm X-Ray 08/22/16 00:00 IMPRESSION: Acute spiral fracture mid 3rd right ulnar diaphysis Acute fracture right 1st metacarpal along the distal diaphysis Cervical Spine CT 08/22/16 12:15 IMPRESSION: CHRONIC DEGENERATIVE CHANGES. NO ACUTE FINDINGS. Facial Bones CT 08/22/16 12:15 IMPRESSION: No evidence for fracture. Paranasal sinuses are well-aerated without air-fluid levels. Soft tissue findings as noted above Hand X-Ray 08/22/16 12:15 IMPRESSION: Acute fracture distal aspect right 1st metacarpal diaphysis, nondisplaced. This best shown on the oblique view, marked with a [place] Head CT 08/22/16 12:15 IMPRESSION: MILD CHRONIC CHANGES OF ATROPHY AND MICROVASCULAR ISCHEMIA. No other significant intracranial abnormalities were identified. Scalp hematoma is identified in the left frontal region Lumbar Spine X-Ray 08/22/16 12:15 IMPRESSION: Degenerative changes. Osteopenia. 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 Assessment & Plan - Diagnosis (1) Fall Qualifiers: Encounter type: initial encounter Qualified Code(s): W19.XXXA - Unspecified fall, initial encounter Is this a current diagnosis for this admission?: YesPlan: The patient was dizzy and grabbed a bookcase that develop on her and caused injury including fracture of her right arm. The patient had no loss of consciousness and no palpitations or tachycardia. This appeared to be a simple mechanical fall and no other precipitating factor. Unfortunately the patient has suffered severe lacerations of her face as well as rhabdomyolysis and arm fracture. (2) Facial laceration Qualifiers: Encounter type: initial encounter Qualified Code(s): S01.81XA - Laceration without foreign body of other part of head, initial encounter Is this a current diagnosis for this admission?: YesPlan: The facial lacerations have been sutured by the emergency room staff. (3) Rhabdomyolysis Is this a current diagnosis for this admission?: YesPlan: The patient was down on the ground for approximately 10 hours. She has developed some mild to moderate rhabdomyolysis. She was orthostatic in the emergency room. The patient's creatine kinase has started to trend down. (4) Ovarian cancer Is this a current diagnosis for this admission?: YesPlan: The patient has had chemotherapy including carboplatin in the past. Her last chemotherapy was in May and by reports she has a lesion on her liver. (5) Hypothyroidism Is this a current diagnosis for this admission?: YesPlan: The patient normally takes Synthroid. She is uncertain as to what the doses but her family will find out and let us know. (6) Depression Is this a current diagnosis for this admission?: YesPlan: The patient was started on Lexapro when her developed dementia. She is uncertain of the dose but the family will find out what her dose is. (7) Anemia of chronic disease Is this a current diagnosis for this admission?: YesPlan: Her hemoglobin has improved after transfusion. (8) Ulna fracture Is this a current diagnosis for this admission?: YesPlan: Orthopedic surgery has evaluated the patient and their input is greatly appreciated. The patient normally uses a walker and her right arm is going to be in a sling. 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 (9) Urinary tract infection Is this a current diagnosis for this admission?: YesPlan: Patient is growing out enterococcus. We'll start on amoxicillin. - Time Time Spent with patient: 25-34 minutes - Inpatient Certification Medical Necessity: Need Close Monitoring Due to Risk of Patient Decompensation - Plan Summary Plan Summary: Patient will start working with physical therapy. She will need placement for rehabilitation because of her right arm fracture along with weakness given her extreme age.
[2016-08-24] MEDS: AMOXICILLIN TRIHYDRATE 500 MG CAPSULE PO SCH ×2 (13:25→23:06)
[2016-08-24] MEDS: OXYCODONE-ACETAMINOPHEN 5-325 MG TABLET PO PRN (23:05)
[2016-08-25] MEDS ORDERED: AMOXICILLIN TRIHYDRATE 500 MG CAPSULE ONE (06:08)
[2016-08-25] MEDS: AMOXICILLIN TRIHYDRATE 500 MG CAPSULE PO SCH ×3 (06:32→22:00)
[2016-08-25 08:14] LABS: ABSOLUTE EOSINOPHILS # (AUTO) 0.1 10^3/uL (0.0-0.6); ABSOLUTE LYMPHOCYTES (AUTO) 1.5 10^3/uL (0.5-4.7); ABSOLUTE MONOCYTES (AUTO) 0.7 10^3/uL (0.1-1.4); ABSOLUTE NEUT (AUTO) 4.6 10^3/uL (1.7-8.2); BASOPHILS % (AUTO) 0.2 % (0-2); EOSINOPHILS % (AUTO) 0.8 % (0-6); HEMATOCRIT 26.9 % (36.0-47.0); HEMOGLOBIN 9.4 g/dL (12.0-15.5); HGB HCT DIFFERENCE 1.3; LYMPHOCYTES % (AUTO) 22.1 % (13-45); MEAN CORPUSCULAR VOLUME 91 fl (80-97); MONOCYTES % (AUTO) 10.7 % (3-13); RED BLOOD COUNT 2.94 10^6/uL (3.72-5.28); SEGMENTED NEUTROPHILS % (AUTO) 66.2 % (42-78); WHITE BLOOD COUNT 6.9 10^3/uL (4.0-10.5)
[2016-08-25 09:43] LABS: ANION GAP 6 (5-19); BLOOD UREA NITROGEN 9 mg/dL (7-20); CALCIUM 8.9 mg/dL (8.4-10.2); CARBON DIOXIDE 25 mmol/L (22-30); CHLORIDE 105 mmol/L (98-107); CREATININE RESULT 0.68 mg/dL (0.52-1.25); GLUCOSE 91 mg/dL (75-110); POTASSIUM 3.6 mmol/L (3.6-5.0); SODIUM 136.1 mmol/L (137-145)
[2016-08-25] MEDS: DOCUSATE SODIUM 100 MG CAPSULE PO SCH ×2 (09:55→22:00)
[2016-08-25] MEDS: FAMOTIDINE 20 MG TABLET PO SCH ×2 (09:55→22:01)
--- NOTE | 2016-08-25 10:22 | PDOC PROGRESS REPORT ---
Subjective Progress Note for:: 08/25/16 Subjective:: Complains of pain in her right arm. She's had difficulty getting up out of bed. Physical Exam Vital Signs: Temp Pulse Resp BP Pulse Ox 97.5 F 76 16 156/67 H 96 08/25/16 07:49 08/25/16 08:00 08/25/16 08:00 08/25/16 07:49 08/25/16 08:00 Intake & Output 08/24/16 08/25/16 08/26/16 06:59 06:59 06:59 Intake Total 4711 5484 Output Total 100 Balance 4711 5384 Weight 70.2 kg 75.5 kg General appearance: PRESENT: no acute distress Eye exam: PRESENT: conjunctiva pink, periorbital swelling Mouth exam: PRESENT: moist, tongue midline Neck exam: ABSENT: JVD Respiratory exam: PRESENT: clear to auscultation lance. ABSENT: rales, rhonchi, wheezes Cardiovascular exam: PRESENT: RRR. ABSENT: diastolic murmur, rubs, systolic murmur GI/Abdominal exam: PRESENT: normal bowel sounds, soft. ABSENT: distended, guarding, mass, organolmegaly, rebound, tenderness Extremities exam: PRESENT: other - Right arm is in a splint. Neurological exam: PRESENT: alert, awake, oriented to person, oriented to place , oriented to time, oriented to situation Psychiatric exam: PRESENT: appropriate affect Skin exam: PRESENT: abrasion - Abrasions on the forehead and right arm. Sutures on the left for head Results Laboratory Results: 08/25/16 06:50 08/25/16 09:16 08/25/16 08/25/16 08/25/16 06:50 06:50 09:16 WBC 6.9 RBC 2.94 L Hgb 9.4 L Hct 26.9 L MCV 91 MCH 32.0 MCHC 35.0 RDW 18.0 H Plt Count 175 Seg Neutrophils % 66.2 Lymphocytes % 22.1 Monocytes % 10.7 Eosinophils % 0.8 Basophils % 0.2 Absolute Neutrophils 4.6 Absolute Lymphocytes 1.5 Absolute Monocytes 0.7 Absolute Eosinophils 0.1 Absolute Basophils 0.0 Sodium Cancelled 136.1 L Potassium Cancelled 3.6 Chloride Cancelled 105 Carbon Dioxide Cancelled 25 Anion Gap Cancelled 6 BUN Cancelled 9 Creatinine Cancelled 0.68 Est GFR ( Amer) Cancelled > 60 Est GFR (Non-Af Amer) Cancelled > 60 Glucose Cancelled 91 Calcium Cancelled 8.9 08/22/16 22:01 Clean Catch Midstream Urine Culture - Final Enterococcus Faecalis(Group D) 08/23/16 08/24/16 05:14 05:50 Creatine Kinase 765 H 260 H Impressions: Forearm X-Ray 08/22/16 00:00 IMPRESSION: Acute spiral fracture mid 3rd right ulnar diaphysis Acute fracture right 1st metacarpal along the distal diaphysis Cervical Spine CT 08/22/16 12:15 IMPRESSION: CHRONIC DEGENERATIVE CHANGES. NO ACUTE FINDINGS. Facial Bones CT 08/22/16 12:15 IMPRESSION: No evidence for fracture. Paranasal sinuses are well-aerated without air-fluid levels. Soft tissue findings as noted above Hand X-Ray 08/22/16 12:15 IMPRESSION: Acute fracture distal aspect right 1st metacarpal diaphysis, nondisplaced. This best shown on the oblique view, marked with a [place] Head CT 08/22/16 12:15 IMPRESSION: MILD CHRONIC CHANGES OF ATROPHY AND MICROVASCULAR ISCHEMIA. No other significant intracranial abnormalities were identified. Scalp hematoma is identified in the left frontal region Lumbar Spine X-Ray 08/22/16 12:15 IMPRESSION: Degenerative changes. Osteopenia. 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 Assessment & Plan - Diagnosis (1) Fall Qualifiers: Encounter type: initial encounter Qualified Code(s): W19.XXXA - Unspecified fall, initial encounter Is this a current diagnosis for this admission?: YesPlan: The patient was dizzy and grabbed a bookcase that develop on her and caused injury including fracture of her right arm. The patient had no loss of consciousness and no palpitations or tachycardia. This appeared to be a simple mechanical fall and no other precipitating factor. Unfortunately the patient has suffered severe lacerations of her face as well as rhabdomyolysis and arm fracture. (2) Facial laceration Qualifiers: Encounter type: initial encounter Qualified Code(s): S01.81XA - Laceration without foreign body of other part of head, initial encounter Is this a current diagnosis for this admission?: YesPlan: The facial lacerations have been sutured by the emergency room staff. (3) Rhabdomyolysis Is this a current diagnosis for this admission?: YesPlan: The patient was down on the ground for approximately 10 hours. She has developed some mild to moderate rhabdomyolysis. She was orthostatic in the emergency room. Resolving. (4) Ovarian cancer Is this a current diagnosis for this admission?: YesPlan: The patient has had chemotherapy including carboplatin in the past. Her last chemotherapy was in May and by reports she has a lesion on her liver. (5) Hypothyroidism Is this a current diagnosis for this admission?: YesPlan: The patient normally takes Synthroid. She is uncertain as to what the doses but her family will find out and let us know. (6) Depression Is this a current diagnosis for this admission?: YesPlan: The patient was started on Lexapro when her developed dementia. (7) Anemia of chronic disease Is this a current diagnosis for this admission?: YesPlan: Her hemoglobin has improved after transfusion. (8) Ulna fracture Is this a current diagnosis for this admission?: YesPlan: Orthopedic surgery has evaluated the patient and their input is greatly appreciated. The patient normally uses a walker and her right arm is going to be in a sling. 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 (9) Urinary tract infection Is this a current diagnosis for this admission?: YesPlan: Patient is growing out enterococcus. Continue amoxicillin. - Time Time Spent with patient: 15-24 minutes - Inpatient Certification Medical Necessity: Need Close Monitoring Due to Risk of Patient Decompensation
[2016-08-25] MEDS: OXYCODONE-ACETAMINOPHEN 5-325 MG TABLET PO PRN ×2 (11:51→22:00)
--- NOTE | 2016-08-25 14:08 | PDOC PROGRESS REPORT ---
Subjective Progress Note for:: 08/25/16 Subjective:: Patient is sleeping comfortably in bed. Denies weightbearing on the right upper extremity. Denies the splint bleeding or causing any skin irritation. Physical Exam Vital Signs: Temp Pulse Resp BP Pulse Ox 36.4 C 76 16 156/67 H 96 08/25/16 07:49 08/25/16 08:00 08/25/16 08:00 08/25/16 07:49 08/25/16 08:00 Intake & Output 08/24/16 08/25/16 08/26/16 06:59 06:59 06:59 Intake Total 4711 5484 Output Total 100 Balance 4711 5384 Weight 70.2 kg 75.5 kg General appearance: PRESENT: no acute distress Adult Front & Back Image: 1 - Splint is intact. She has good capillary refill and good sensation to light touch. Results Laboratory Results: 08/25/16 06:50 08/25/16 09:16 08/25/16 08/25/16 08/25/16 06:50 06:50 09:16 WBC 6.9 RBC 2.94 L Hgb 9.4 L Hct 26.9 L MCV 91 MCH 32.0 MCHC 35.0 RDW 18.0 H Plt Count 175 Seg Neutrophils % 66.2 Lymphocytes % 22.1 Monocytes % 10.7 Eosinophils % 0.8 Basophils % 0.2 Absolute Neutrophils 4.6 Absolute Lymphocytes 1.5 Absolute Monocytes 0.7 Absolute Eosinophils 0.1 Absolute Basophils 0.0 Sodium Cancelled 136.1 L Potassium Cancelled 3.6 Chloride Cancelled 105 Carbon Dioxide Cancelled 25 Anion Gap Cancelled 6 BUN Cancelled 9 Creatinine Cancelled 0.68 Est GFR ( Amer) Cancelled > 60 Est GFR (Non-Af Amer) Cancelled > 60 Glucose Cancelled 91 Calcium Cancelled 8.9 08/22/16 22:01 Clean Catch Midstream Urine Culture - Final Enterococcus Faecalis(Group D) 08/23/16 08/24/16 05:14 05:50 Creatine Kinase 765 H 260 H Impressions: Forearm X-Ray 08/22/16 00:00 IMPRESSION: Acute spiral fracture mid 3rd right ulnar diaphysis Acute fracture right 1st metacarpal along the distal diaphysis Cervical Spine CT 08/22/16 12:15 IMPRESSION: CHRONIC DEGENERATIVE CHANGES. NO ACUTE FINDINGS. Facial Bones CT 08/22/16 12:15 IMPRESSION: No evidence for fracture. Paranasal sinuses are well-aerated without air-fluid levels. Soft tissue findings as noted above Hand X-Ray 08/22/16 12:15 IMPRESSION: Acute fracture distal aspect right 1st metacarpal diaphysis, nondisplaced. This best shown on the oblique view, marked with a [place] Head CT 08/22/16 12:15 IMPRESSION: MILD CHRONIC CHANGES OF ATROPHY AND MICROVASCULAR ISCHEMIA. No other significant intracranial abnormalities were identified. Scalp hematoma is identified in the left frontal region Lumbar Spine X-Ray 08/22/16 12:15 IMPRESSION: Degenerative changes. Osteopenia. 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 Assessment & Plan - Diagnosis (1) Fracture of ulnar shaft, closed Qualifiers: Encounter type: initial encounter Fracture morphology: oblique Fracture alignment: displaced Laterality: right Qualified Code(s): S52.231A - Displaced oblique fracture of shaft of right ulna, initial encounter for closed fracture Is this a current diagnosis for this admission?: Yes (2) Fracture of metacarpal neck of right hand, closed Is this a current diagnosis for this admission?: Yes - Plan Summary Plan Summary: Patient is a 89-year-old female with right distal ulna fracture and right first metacarpal shaft fracture. Patient continues to be nonweightbearing in her thumb spica splint. She is slow with therapy therefore she may require nursing home facility. Patient instructed to follow up in 1-2 weeks.
[2016-08-25] MEDS: NORMAL SALINE 1000 ML 1,000 ML IV PRN (14:45)
[2016-08-26] MEDS: OXYCODONE-ACETAMINOPHEN 5-325 MG TABLET PO PRN (05:17)
[2016-08-26] MEDS: AMOXICILLIN TRIHYDRATE 500 MG CAPSULE PO SCH ×3 (05:17→23:26)
[2016-08-26 06:45] LABS: ABSOLUTE EOSINOPHILS # (AUTO) 0.1 10^3/uL (0.0-0.6); ABSOLUTE LYMPHOCYTES (AUTO) 1.3 10^3/uL (0.5-4.7); ABSOLUTE MONOCYTES (AUTO) 0.9 10^3/uL (0.1-1.4); ABSOLUTE NEUT (AUTO) 5.1 10^3/uL (1.7-8.2); BASOPHILS % (AUTO) 0.5 % (0-2); EOSINOPHILS % (AUTO) 0.8 % (0-6); HEMATOCRIT 27.7 % (36.0-47.0); HEMOGLOBIN 9.4 g/dL (12.0-15.5); HGB HCT DIFFERENCE 0.5; LYMPHOCYTES % (AUTO) 17.2 % (13-45); MEAN CORPUSCULAR HEMOGLOBIN 31.5 pg (27.0-33.4); MEAN CORPUSCULAR VOLUME 93 fl (80-97); MONOCYTES % (AUTO) 11.8 % (3-13); RED BLOOD COUNT 2.99 10^6/uL (3.72-5.28); RED CELL DISTRIBUTION WIDTH 17.3 % (11.5-14.0); SEGMENTED NEUTROPHILS % (AUTO) 69.7 % (42-78); WHITE BLOOD COUNT 7.3 10^3/uL (4.0-10.5)
[2016-08-26 07:02] LABS: ANION GAP 11 (5-19); BLOOD UREA NITROGEN 7 mg/dL (7-20); CARBON DIOXIDE 24 mmol/L (22-30); CHLORIDE 102 mmol/L (98-107); CREATININE RESULT 0.64 mg/dL (0.52-1.25); GLUCOSE 87 mg/dL (75-110); POTASSIUM 3.3 mmol/L (3.6-5.0); SODIUM 136.8 mmol/L (137-145)
[2016-08-26] MEDS: DOCUSATE SODIUM 100 MG CAPSULE PO SCH ×2 (09:57→23:26)
[2016-08-26] MEDS: POTASSIUM CHLORIDE 10 MEQ TABLET.SA PO SCH ×2 (09:57→23:26)
[2016-08-26] MEDS: FAMOTIDINE 20 MG TABLET PO SCH ×2 (09:57→23:26)
--- NOTE | 2016-08-26 11:00 | PDOC PROGRESS REPORT ---
Subjective Progress Note for:: 08/26/16 Subjective:: Patient was slightly confused when I awoke her this morning. She reports her pain in the right arm is reasonable Physical Exam Vital Signs: Temp Pulse Resp BP Pulse Ox 98.5 F 73 19 155/54 H 95 08/26/16 07:48 08/26/16 07:48 08/26/16 07:48 08/26/16 07:48 08/26/16 07:48 Intake & Output 08/25/16 08/26/16 08/27/16 06:59 06:59 06:59 Intake Total 5484 3540 Output Total 100 Balance 5384 3540 Weight 75.5 kg 75.5 kg General appearance: PRESENT: no acute distress Eye exam: PRESENT: conjunctiva pink Mouth exam: PRESENT: moist, tongue midline Neck exam: ABSENT: JVD Respiratory exam: PRESENT: clear to auscultation lance. ABSENT: rales, rhonchi, wheezes Cardiovascular exam: PRESENT: RRR. ABSENT: diastolic murmur, rubs, systolic murmur GI/Abdominal exam: PRESENT: normal bowel sounds, soft. ABSENT: distended, guarding, mass, organolmegaly, rebound, tenderness Extremities exam: PRESENT: other - Right arm is in a splint. Neurological exam: PRESENT: other - Patient was confused when I woke her up however she became oriented after a few minutes. Psychiatric exam: PRESENT: appropriate affect Skin exam: PRESENT: other - Patient has ecchymosis on her periorbital area. There is a suture line above her left eyebrow. Results Laboratory Results: 08/26/16 05:15 08/26/16 05:15 08/26/16 08/26/16 05:15 05:15 WBC 7.3 RBC 2.99 L Hgb 9.4 L Hct 27.7 L MCV 93 MCH 31.5 MCHC 34.0 RDW 17.3 H Plt Count 193 Seg Neutrophils % 69.7 Lymphocytes % 17.2 Monocytes % 11.8 Eosinophils % 0.8 Basophils % 0.5 Absolute Neutrophils 5.1 Absolute Lymphocytes 1.3 Absolute Monocytes 0.9 Absolute Eosinophils 0.1 Absolute Basophils 0.0 Sodium 136.8 L Potassium 3.3 L Chloride 102 Carbon Dioxide 24 Anion Gap 11 BUN 7 Creatinine 0.64 Est GFR ( Amer) > 60 Est GFR (Non-Af Amer) > 60 Glucose 87 Calcium 8.0 L 08/23/16 08/24/16 05:14 05:50 Creatine Kinase 765 H 260 H Impressions: Forearm X-Ray 08/22/16 00:00 IMPRESSION: Acute spiral fracture mid 3rd right ulnar diaphysis Acute fracture right 1st metacarpal along the distal diaphysis Cervical Spine CT 08/22/16 12:15 IMPRESSION: CHRONIC DEGENERATIVE CHANGES. NO ACUTE FINDINGS. Facial Bones CT 08/22/16 12:15 IMPRESSION: No evidence for fracture. Paranasal sinuses are well-aerated without air-fluid levels. Soft tissue findings as noted above Hand X-Ray 08/22/16 12:15 IMPRESSION: Acute fracture distal aspect right 1st metacarpal diaphysis, nondisplaced. This best shown on the oblique view, marked with a burns paiute Head CT 08/22/16 12:15 IMPRESSION: MILD CHRONIC CHANGES OF ATROPHY AND MICROVASCULAR ISCHEMIA. No other significant intracranial abnormalities were identified. Scalp hematoma is identified in the left frontal region Lumbar Spine X-Ray 08/22/16 12:15 IMPRESSION: Degenerative changes. Osteopenia. 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 Assessment & Plan - Diagnosis (1) Fall Qualifiers: Encounter type: initial encounter Qualified Code(s): W19.XXXA - Unspecified fall, initial encounter Is this a current diagnosis for this admission?: YesPlan: The patient was dizzy and grabbed a bookcase that develop on her and caused injury including fracture of her right arm. The patient had no loss of consciousness and no palpitations or tachycardia. This appeared to be a simple mechanical fall and no other precipitating factor. Unfortunately the patient has suffered severe lacerations of her face as well as rhabdomyolysis and arm fracture. (2) Facial laceration Qualifiers: Encounter type: initial encounter Qualified Code(s): S01.81XA - Laceration without foreign body of other part of head, initial encounter Is this a current diagnosis for this admission?: YesPlan: The facial lacerations have been sutured by the emergency room staff. (3) Rhabdomyolysis Is this a current diagnosis for this admission?: YesPlan: The patient was down on the ground for approximately 10 hours. She has developed some mild to moderate rhabdomyolysis. She was orthostatic in the emergency room. Resolving. (4) Ovarian cancer Is this a current diagnosis for this admission?: YesPlan: The patient has had chemotherapy including carboplatin in the past. Her last chemotherapy was in May and by reports she has a lesion on her liver. (5) Hypothyroidism Is this a current diagnosis for this admission?: YesPlan: The patient normally takes Synthroid. (6) Depression Is this a current diagnosis for this admission?: YesPlan: The patient was started on Lexapro when her developed dementia. (7) Anemia of chronic disease Is this a current diagnosis for this admission?: YesPlan: Her hemoglobin has improved after transfusion. (8) Ulna fracture Is this a current diagnosis for this admission?: YesPlan: Orthopedic surgery has evaluated the patient and their input is greatly appreciated. The patient normally uses a walker and her right arm is going to be in a sling. 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 (9) Urinary tract infection Is this a current diagnosis for this admission?: YesPlan: Patient is growing out enterococcus. Continue amoxicillin. - Time Time Spent with patient: 25-34 minutes - Inpatient Certification Medical Necessity: Need Close Monitoring Due to Risk of Patient Decompensation - Plan Summary Plan Summary: We'll plan on discharge to a snf facility for rehabilitation when a bed becomes available.
[2016-08-26] MEDS ORDERED: ESCITALOPRAM OXALATE 10 MG TABLET PO ONE (13:00)
[2016-08-26] MEDS ORDERED: LEVOTHYROXINE SODIUM 0.05 MG TABLET PO ONE (13:00)
[2016-08-26] MEDS: LACTULOSE SYRUP 20 GM/30 ML UDCUP PO PRN (13:12)
[2016-08-26] MEDS: IBUPROFEN 800 MG TABLET PO PRN (17:19)
[2016-08-27] MEDS: IBUPROFEN 800 MG TABLET PO PRN ×2 (04:44→19:19)
[2016-08-27] MEDS: NORMAL SALINE 1000 ML 1,000 ML IV PRN ×3 (06:21→22:43)
[2016-08-27] MEDS: AMOXICILLIN TRIHYDRATE 500 MG CAPSULE PO SCH ×3 (06:21→22:40)
[2016-08-27 08:20] LABS: ABSOLUTE EOSINOPHILS # (AUTO) 0.1 10^3/uL (0.0-0.6); ABSOLUTE NEUT (AUTO) 4.8 10^3/uL (1.7-8.2); BASOPHILS % (AUTO) 0.1 % (0-2); HEMATOCRIT 27.8 % (36.0-47.0); HEMOGLOBIN 9.6 g/dL (12.0-15.5); LYMPHOCYTES % (AUTO) 14.5 % (13-45); MEAN CORPUSCULAR HEMOGLOBIN 31.7 pg (27.0-33.4); MEAN CORPUSCULAR HGB CONC 34.4 g/dL (32.0-36.0); MEAN CORPUSCULAR VOLUME 92 fl (80-97); MONOCYTES % (AUTO) 14.2 % (3-13); RED BLOOD COUNT 3.02 10^6/uL (3.72-5.28); RED CELL DISTRIBUTION WIDTH 17.2 % (11.5-14.0); SEGMENTED NEUTROPHILS % (AUTO) 70.2 % (42-78); WHITE BLOOD COUNT 6.8 10^3/uL (4.0-10.5)
[2016-08-27 08:42] LABS: ANION GAP 8 (5-19); BLOOD UREA NITROGEN 8 mg/dL (7-20); CALCIUM 8.2 mg/dL (8.4-10.2); CARBON DIOXIDE 26 mmol/L (22-30); CHLORIDE 105 mmol/L (98-107); CREATININE RESULT 0.63 mg/dL (0.52-1.25); GLUCOSE 95 mg/dL (75-110); POTASSIUM 3.6 mmol/L (3.6-5.0); SODIUM 138.9 mmol/L (137-145)
--- NOTE | 2016-08-27 10:06 | PDOC DISCHARGE SUMMARY ---
General - Admit/Disc Date/PCP Admission Date/Primary Care Provider: 08/22/16 17:47 MARCELLO ADAIR Discharge Date: 08/28/16 - Discharge Diagnosis (1) Fall Is this a current diagnosis for this admission?: Yes (2) Facial laceration Is this a current diagnosis for this admission?: YesSummary: Patient received sutures on the laceration above her left eyebrow. Sutures are to be removed on 09/01/2015 (3) Rhabdomyolysis Is this a current diagnosis for this admission?: Yes (4) Ovarian cancer Is this a current diagnosis for this admission?: Yes (5) Hypothyroidism Is this a current diagnosis for this admission?: Yes (6) Depression Is this a current diagnosis for this admission?: Yes (7) Anemia of chronic disease Is this a current diagnosis for this admission?: Yes (8) Ulna fracture Is this a current diagnosis for this admission?: Yes (9) Urinary tract infection Is this a current diagnosis for this admission?: YesSummary: Enterococcus being treated with amoxicillin. - Additional Information Resuscitation Status: Do Not Resuscitate Home Medications: Escitalopram Oxalate [Lexapro 10 mg Tablet] 1 tab PO DAILY 08/22/16 Levothyroxine Sodium [Synthroid 0.05 mg Tablet] 1 tab PO DAILY 08/22/16 Amoxicillin Trihydrate [Amoxil 500 mg Capsule] 500 mg PO Q8 #14 capsule Ibuprofen [Motrin 800 mg Tablet] 800 mg PO Q8HP PRN tablet 08/27/16 Lactulose [Cephulac Syrup 20 gm/30 ml Udcup] 20 gm PO Q6HP PRN udc 08/27/16 Tramadol HCl 1 tab PO Q4HP PRN #30 tablet 08/27/16 History of Present Illness History of Present Illness: SHEREEN CHOUDHURY is a 89 year old female who has lived alone and has been in fairly good health of having ovarian cancer. She finished chemotherapy last in May. Yesterday evening around 11 PM she was walking to her house and felt lightheaded and dizzy. She reached behind her and grabbed hold of the bookshelf to stop her fall and pulled the bookshelf on top of her. She suffered facial lacerations as well as a right forearm fracture and left thumb fracture. She laid on the floor until 9 AM when her daughter came by to fix her breakfast. She was found underneath the bookcase covered and blood and was brought to the emergency room for further treatment. The patient denies having any loss of consciousness. She denied having any palpitations or tachycardia. The patient currently however has difficulty standing because feeling lightheaded and appears to be dehydrated. The patient also has fractures of her right ulnar as above. Hospital Course Hospital Course: 89-year-old female who lost her balance and grabbed hold of a bookcase which then fell on top of her. The patient had this occur at night and was trapped by the bookcase until her daughter found her in the morning. When she presented to the emergency room she was found to have rhabdomyolysis. She also had a right ulnar fracture as well as a first MCP fracture. Patient was evaluated by orthopedic surgery who put her in a spica splint. Patient also received a laceration above her left eyebrow which was treated with sutures. The patient's rhabdomyolysis was treated with IV fluids has resolved. Patient also was noted have a urinary tract infection with enterococcus and has been treated with amoxicillin. 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 Now that she has a fracture in her right ulna she is unable to bear any weight on her right arm and cannot use a walker at this time. Because of this she needs to go to a [facility] facility for rehabilitation until she is able to ambulate and bear weight on her right arm. The patient will follow up with orthopedic surgery in 2 weeks. Physical Exam Vital Signs: Temp Pulse Resp BP Pulse Ox 97.8 F 63 20 168/72 H 96 08/27/16 08:30 08/27/16 08:30 08/26/16 23:45 08/27/16 08:30 08/27/16 08:30 Intake & Output 08/26/16 08/27/16 08/28/16 06:59 06:59 06:59 Intake Total 3540 2275 Balance 3540 2275 Weight 75.5 kg 76.5 kg General appearance: PRESENT: no acute distress Eye exam: PRESENT: conjunctiva pink Mouth exam: PRESENT: moist, tongue midline Neck exam: ABSENT: JVD Respiratory exam: PRESENT: clear to auscultation lance. ABSENT: rales, rhonchi, wheezes Cardiovascular exam: PRESENT: RRR. ABSENT: diastolic murmur, rubs, systolic murmur GI/Abdominal exam: PRESENT: normal bowel sounds, soft. ABSENT: distended, guarding, mass, organolmegaly, rebound, tenderness Extremities exam: PRESENT: other - Patient has a spica splint on the right arm.. ABSENT: calf tenderness, clubbing, pedal edema Neurological exam: PRESENT: alert, awake, oriented to person, oriented to place , oriented to time, oriented to situation, CN II-XII grossly intact Psychiatric exam: PRESENT: appropriate affect Skin exam: PRESENT: other - Sutures above the left eyebrow Results Laboratory Results: 08/27/16 06:27 08/27/16 07:48 08/27/16 08/27/16 06:27 07:48 WBC 6.8 RBC 3.02 L Hgb 9.6 L Hct 27.8 L MCV 92 MCH 31.7 MCHC 34.4 RDW 17.2 H Plt Count 195 Seg Neutrophils % 70.2 Lymphocytes % 14.5 Monocytes % 14.2 H Eosinophils % 1.0 Basophils % 0.1 Absolute Neutrophils 4.8 Absolute Lymphocytes 1.0 Absolute Monocytes 1.0 Absolute Eosinophils 0.1 Absolute Basophils 0.0 Sodium 138.9 Potassium 3.6 Chloride 105 Carbon Dioxide 26 Anion Gap 8 BUN 8 Creatinine 0.63 Est GFR ( Amer) > 60 Est GFR (Non-Af Amer) > 60 Glucose 95 Calcium 8.2 L 08/23/16 08/24/16 05:14 05:50 Creatine Kinase 765 H 260 H Impressions: Forearm X-Ray 08/22/16 00:00 IMPRESSION: Acute spiral fracture mid 3rd right ulnar diaphysis Acute fracture right 1st metacarpal along the distal diaphysis Cervical Spine CT 08/22/16 12:15 IMPRESSION: CHRONIC DEGENERATIVE CHANGES. NO ACUTE FINDINGS. Facial Bones CT 08/22/16 12:15 IMPRESSION: No evidence for fracture. Paranasal sinuses are well-aerated without air-fluid levels. Soft tissue findings as noted above Hand X-Ray 08/22/16 12:15 IMPRESSION: Acute fracture distal aspect right 1st metacarpal diaphysis, nondisplaced. This best shown on the oblique view, marked with a [place] Head CT 08/22/16 12:15 IMPRESSION: MILD CHRONIC CHANGES OF ATROPHY AND MICROVASCULAR ISCHEMIA. No other significant intracranial abnormalities were identified. Scalp hematoma is identified in the left frontal region Lumbar Spine X-Ray 08/22/16 12:15 IMPRESSION: Degenerative changes. Osteopenia. 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 Qualifiers [place]INT BEING DISCHARGED WITH ANY OF THE FOLLOWING DIAGNOSIS?: No Plan Discharge Plan: Patient is to be discharged to [facility] in [facility] on 08/28/2016. She will need follow-up with orthopedic surgery in 2 weeks. Sutures need to be removed from her left eyebrow on 2016 Time Spent: Greater than 30 Minutes
[2016-08-27] MEDS: LEVOTHYROXINE SODIUM 0.05 MG TABLET PO SCH (10:20)
[2016-08-27] MEDS: POTASSIUM CHLORIDE 10 MEQ TABLET.SA PO SCH ×2 (10:20→22:43)
[2016-08-27] MEDS: DOCUSATE SODIUM 100 MG CAPSULE PO SCH ×2 (10:20→22:43)
[2016-08-27] MEDS: ESCITALOPRAM OXALATE 10 MG TABLET PO SCH (10:20)
[2016-08-27] MEDS: FAMOTIDINE 20 MG TABLET PO SCH ×2 (10:21→22:40)
[2016-08-27] MEDS: LACTULOSE SYRUP 20 GM/30 ML UDCUP PO PRN (10:21)
[2016-08-28] MEDS: AMOXICILLIN TRIHYDRATE 500 MG CAPSULE PO SCH (06:14)
[2016-08-28] MEDS: IBUPROFEN 800 MG TABLET PO PRN (06:15)
[2016-08-28] MEDS: NORMAL SALINE 1000 ML 1,000 ML IV PRN (06:18)
--- NOTE | 2016-08-28 09:23 | PDOC PROGRESS REPORT ---
Subjective Progress Note for:: 08/28/16 Subjective:: This is an addendum to the discharge summary dictated by Dr. Henley. Patient was doing well. Reported intermittent confusion but most of the time patient is oriented. No reported respiratory distress or temperature spikes. No reported nausea or vomiting. Resting comfortably. Physical Exam Vital Signs: Temp Pulse Resp BP Pulse Ox 97.8 F 76 20 163/75 H 97 08/28/16 07:53 08/28/16 07:53 08/28/16 07:53 08/28/16 07:53 08/28/16 07:53 Intake & Output 08/27/16 08/28/16 08/29/16 06:59 06:59 06:59 Intake Total 2275 3602 Balance 2275 3602 Weight 76.5 kg 75.4 kg General appearance: PRESENT: no acute distress Head exam: PRESENT: normocephalic Eye exam: PRESENT: conjunctiva pale Mouth exam: PRESENT: moist, neck supple Neck exam: ABSENT: JVD Respiratory exam: PRESENT: clear to auscultation lance, unlabored. ABSENT: rhonchi, wheezes Cardiovascular exam: PRESENT: RRR GI/Abdominal exam: PRESENT: normal bowel sounds, soft. ABSENT: distended, tenderness Extremities exam: ABSENT: pedal edema Skin exam: PRESENT: dry, warm. ABSENT: cyanosis Results Laboratory Results: 08/27/16 06:27 08/27/16 07:48 08/23/16 08/24/16 05:14 05:50 Creatine Kinase 765 H 260 H Impressions: Forearm X-Ray 08/22/16 00:00 IMPRESSION: Acute spiral fracture mid 3rd right ulnar diaphysis Acute fracture right 1st metacarpal along the distal diaphysis Cervical Spine CT 08/22/16 12:15 IMPRESSION: CHRONIC DEGENERATIVE CHANGES. NO ACUTE FINDINGS. Facial Bones CT 08/22/16 12:15 IMPRESSION: No evidence for fracture. Paranasal sinuses are well-aerated without air-fluid levels. Soft tissue findings as noted above Hand X-Ray 08/22/16 12:15 IMPRESSION: Acute fracture distal aspect right 1st metacarpal diaphysis, nondisplaced. This best shown on the oblique view, marked with a [place] Head CT 08/22/16 12:15 IMPRESSION: MILD CHRONIC CHANGES OF ATROPHY AND MICROVASCULAR ISCHEMIA. No other significant intracranial abnormalities were identified. Scalp hematoma is identified in the left frontal region Lumbar Spine X-Ray 08/22/16 12:15 IMPRESSION: Degenerative changes. Osteopenia. 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 Assessment & Plan - Diagnosis (1) Fall Qualifiers: Encounter type: initial encounter Qualified Code(s): W19.XXXA - Unspecified fall, initial encounter Is this a current diagnosis for this admission?: Yes (2) Fracture of metacarpal neck of right hand, closed Is this a current diagnosis for this admission?: Yes (3) Fracture of ulnar shaft, closed Qualifiers: Encounter type: initial encounter Fracture morphology: oblique Fracture alignment: displaced Laterality: right Qualified Code(s): S52.231A - Displaced oblique fracture of shaft of right ulna, initial encounter for closed fracture Is this a current diagnosis for this admission?: Yes (4) Anemia of chronic disease Is this a current diagnosis for this admission?: Yes (5) Depression Is this a current diagnosis for this admission?: Yes (6) Hypothyroidism Is this a current diagnosis for this admission?: Yes (7) Rhabdomyolysis Is this a current diagnosis for this admission?: Yes (8) Urinary tract infection Is this a current diagnosis for this admission?: Yes - Time Time Spent with patient: 25-34 minutes - Plan Summary Plan Summary: Continued discharge plan as prepaired by Dr. Henley. Continue supportive care and PT.
[2016-08-28] MEDS: DOCUSATE SODIUM 100 MG CAPSULE PO SCH (10:21)
[2016-08-28] MEDS: ESCITALOPRAM OXALATE 10 MG TABLET PO SCH (10:21)
[2016-08-28] MEDS: FAMOTIDINE 20 MG TABLET PO SCH (10:21)
[2016-08-28] MEDS: LEVOTHYROXINE SODIUM 0.05 MG TABLET PO SCH (10:21)
[2016-08-28] MEDS: POTASSIUM CHLORIDE 10 MEQ TABLET.SA PO SCH (10:21)
[2016-08-28 12:35] VITALS: BP 153/68
== END 2016-08-28 13:48 | DRG 565 ==
LOC: ER 11:44 → EH 17:47 → UNDOADMIN 18:27 → EH 18:27 → 4N 22:40
PROVIDERS: ADMIT Internal Medicine; ATTEND Internal Medicine
PROC: 0HQ1XZZ Repair Face Skin, External Approach (ICD-10-PCS; 2016-08-22)
PROC: 2W3CX1Z Immobilization of Right Lower Arm using Splint (ICD-10-PCS; 2016-08-22)
PROC: 30233N1 Transfusion of Nonautologous Red Blood Cells into Peripheral Vein, Percutaneous Approach (ICD-10-PCS; principal; 2016-08-23)
DX: T79.6XXA Traumatic ischemia of muscle, initial encounter (principal); C78.7 Secondary malignant neoplasm of liver and intrahepatic bile duct; S52.231A Displaced oblique fracture of shaft of right ulna, initial encounter for closed fracture; N39.0 Urinary tract infection, site not specified; S62.292A Other fracture of first metacarpal bone, left hand, initial encounter for closed fracture; S51.812A Laceration without foreign body of left forearm, initial encounter; S01.412A Laceration without foreign body of left cheek and temporomandibular area, initial encounter; S00.12XA Contusion of left eyelid and periocular area, initial encounter; S00.11XA Contusion of right eyelid and periocular area, initial encounter; S00.31XA Abrasion of nose, initial encounter; W18.09XA Striking against other object with subsequent fall, initial encounter; Y92.009 Unspecified place in unspecified non-institutional (private) residence as the place of occurrence of the external cause; E86.0 Dehydration; Z85.43 Personal history of malignant neoplasm of ovary; Z92.21 Personal history of antineoplastic chemotherapy; E03.9 Hypothyroidism, unspecified; M19.90 Unspecified osteoarthritis, unspecified site; F32.9 Major depressive disorder, single episode, unspecified; D63.8 Anemia in other chronic diseases classified elsewhere; M17.0 Bilateral primary osteoarthritis of knee; B95.2 Enterococcus as the cause of diseases classified elsewhere; Z79.899 Other long term (current) drug therapy; Z90.49 Acquired absence of other specified parts of digestive tract; Z85.038 Personal history of other malignant neoplasm of large intestine; Z82.49 Family history of ischemic heart disease and other diseases of the circulatory system
CPT/HCPCS: 36415; 36430; 70450; 70486; 71010; 72110; 72125; 80048; 80053; 81001; 82550; 82553; 82962; 84484; 85025; 85027; 85610; 85730; 86850; 86900; 86901; 86920; 87086; 87088; 87186; 90471; 90686; 90715; 93005; 93010; 94799; 96361; 96374; 96375; 96376; 99285; G8978-GP; G8979-GP; G8987-GO; G8988-GO; J1642; J1940; J2270; J2405; J7030; P9016